=== PATIENT | male | born 2005 | race Two or more races ===

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

== ENCOUNTER 2023-08-09 01:36 | Emergency (ER) | payer OTHER, SELFPAY ==
[2023-08-09 01:46] VITALS: BP 154/78; PULSE 112; RESP 18; TEMP 36.9; O2SAT 98; BMI 18.9
[2023-08-09 06:32] VITALS: BP 120/62; PULSE 92; RESP 18; TEMP 36.7; O2SAT 98
--- NOTE | 2023-08-09 07:20 | ED_ITS ---
HPI - General Adult General Chief complaint: Anxiety Stated complaint: anxiety attack Time Seen by Provider: 08/09/23 07:16 Source: patient Mode of arrival: ambulatory Limitations: no limitations History of Present Illness HPI narrative: Patient is a 18-year-old male with history of anxiety presenting to the emergency department with complaint of feeling ?fake. He states that he was asleep at his girlfriend's house when her mother came home and he had to get up to open the door for her. States that when he went to try to go back to sleep, everything felt surreal. He states it felt similar to episodes of anxiety in the past. Does not currently have a therapist or psychiatrist and is not on any psychiatric medications. He denies any physical complaints. Denies any thoughts of suicidal or homicidal ideation, denies auditory or visual hallucinations. MD complaint: anxiety Onset (ago): hour(s) Associated symptoms: denies other symptoms Treatments prior to arrival: none Related Data Allergies Allergy/AdvReac Type Severity Reaction Status Date / Time No Known Allergies Allergy Verified 08/09/23 01:47 [No Known Allergies*] Review of Systems Review of Systems: As per HPI. Yes all other systems are reviewed and are negative Constitutional: Constitutional: Reports as per HPI FORMERLY [facility], [facility]–1983 Social History Social History Smoked in Last 30 Days: No Use of substances other than those prescribed or required for medical reasons: No Advance Directives: No Advance Directives Information Provided: No Physical Exam ED Vital Signs: Vital Signs - 24 hr 08/09/23 01:46 08/09/23 06:32 Temperature 98.4 F 98.1 F Pulse Rate 112 H 92 Respiratory Rate 18 18 Blood Pressure 154/78 H 120/62 Pulse Oximetry 98 98 Oxygen Delivery Method Room Air Room Air BMI result Body Mass Index 18.9 Vital signs have been reviewed and appear to be correct. Blood pressure normal. Heart rate normal. Respiratory rate normal. Temperature normal. Oxygen saturation normal. Const General: cooperative, healthy appearing and no acute distress Orientation/consciousness: oriented to person, oriented to place, oriented to time and patient oriented x3 Limitations: no limitations HENMT Head: Yes normocephalic and Yes atraumatic Ears: external ears normal General nose exam: Normal external nose present Face and sinus: Yes face symmetric Mouth: oropharynx normal and moist mucous membranes Throat: Yes uvula midline Eyes Pupils: Equal, round and reactive pupils present Neck Neck: Yes normal visual inspection and Yes supple Resp Effort & Inspection: normal respiratory effort and able to speak in complete sentences Auscultation: clear to auscultation bilaterally Cardio Rate: regular rate Rhythm: regular rhythm Heart sounds: S1 normal heart sound present and S2 normal heart sound present GI Palpation (GI): Soft to palpation and nontender Auscultation: normoactive bowel sounds General: Yes no CVA tenderness Back/Spine/Pelvis Back: no CVA tenderness Skin General skin exam: elasticity normal and turgor normal Neuro General: oriented to person, oriented to place, oriented to time, patient oriented x3, moves all extremities, no focal motor deficits and CN's II-XI intact bilaterally Cranial nerves: Yes Equal, round and reactive pupils present Cognition (Neuro): normal cognition Extrem General: Yes full ROM, Yes no pedal edema and Yes no calf tenderness Psych Appearance: grossly normal Mental Status: mental status grossly normal Speech and movement: Normal speech and movement present Affect: Anxious affect present Attitude: cooperative Thought process: Normal thought process present Thought content: suicidality, no homicidality and no hallucinations Insight: Fair insight present (Psych) Judgement: Fair judgement present (Psych) Medical Decision Making Medical Decision Making MDM Narrative: Patient is a 18-year-old male with history of anxiety presenting to the emergency department with complaint of feeling ?fake. On exam patient is awake, A+Ox3, VS WNL, afebrile, normal neurological exam without focal deficits, physical exam findings as above. Given reported symptoms and physical exam findings, initial differential includes acute anxiety, depression. Patient offered to speak with care team which he declined, patient also offered short course of anxiety medication which he also declined. Patient states he is interested in finding a therapist in his community and he was provided with resources for this in the emergency department. Return precautions discussed with patient at bedside. Patient verbalized understanding of and agreement with plan. Differential Diagnosis Differential Diagnoses: The differential diagnosis associated with the presentation includes As per MDM. Admission/Observation Consideration of admission/observation: Escalation of care including admission/observation considered Patient would have been admitted to the hospital had their work up had any findings where hospital admission was appropriate and their clinical presentation warranted hospital admission. External Record Review External record reviewed: Inpatient record, Office record and Outpatient record Prescription Management I considered prescription management with: Other (offered medication for anxiety which patient declined) Discharge Plan Discharge Clinical Impression: Acute anxiety Patient Disposition: Home, Self-Care Instructions: Anxiety (ED) Additional Instructions: You were evaluated in the emergency department today for symptoms which could be due to anxiety. You were offered treatment with medication which you declined. You are being provided with resources to follow-up with in the community. We recommend that you establish care with a therapist. You should follow-up with your primary care provider as well. Return to the emergency department if you have thoughts of hurting herself or anyone else or any other concerning symptoms. Print Language: Malagasy
[2023-08-09 07:37] VITALS: BP 120/62; PULSE 92; RESP 18; TEMP 36.7; O2SAT 98
== END 2023-08-09 07:45 | disposition home or self-care (01) ==
PROVIDERS: Emergency Provider Emergency Medicine
DX: F41.1 Generalized anxiety disorder (principal); F43.0 Acute stress reaction
CPT/HCPCS: 99282; 99284